=== PATIENT | female | born 1955 | race Caucasian/White ===

== ENCOUNTER → 2021-05-31 16:04 | Outpatient (BNVA) | payer MEDICARE, OTHER, SELFPAY | PROVIDERS: PCP Registered Nurse; Visit Provider Registered Nurse | DX: I10 Essential (primary) hypertension (principal); E11.9 Type 2 diabetes mellitus without complications; E03.9 Hypothyroidism, unspecified | CPT/HCPCS: 80053; 80061; 83036; 83721; 84443; 85025 ==

== ENCOUNTER → 2021-08-23 14:18 | Outpatient (BNVA) | payer MEDICARE, OTHER, SELFPAY | PROVIDERS: PCP Registered Nurse; Visit Provider Family Medicine | DX: E11.9 Type 2 diabetes mellitus without complications (principal); F51.01 Primary insomnia | CPT/HCPCS: 80048; 83036 ==

== ENCOUNTER → 2021-08-27 13:15 | Outpatient (BNVA) | payer MEDICARE, OTHER, SELFPAY | PROVIDERS: PCP Registered Nurse; Referring Provider Family Medicine; Visit Provider Internal Medicine | DX: E03.9 Hypothyroidism, unspecified (principal); E04.1 Nontoxic single thyroid nodule; E11.9 Type 2 diabetes mellitus without complications; I10 Essential (primary) hypertension; R00.0 Tachycardia, unspecified; I73.00 Raynaud's syndrome without gangrene; Z79.84 Long term (current) use of oral hypoglycemic drugs | CPT/HCPCS: 99204 ==

== ENCOUNTER → 2021-09-05 09:02 | Outpatient (BNVA) | payer MEDICARE, OTHER, SELFPAY | PROVIDERS: PCP Registered Nurse; Visit Provider Internal Medicine | DX: I10 Essential (primary) hypertension (principal); E11.9 Type 2 diabetes mellitus without complications; E03.9 Hypothyroidism, unspecified | CPT/HCPCS: 83036; 84439; 84443; 84480 ==

== ENCOUNTER → 2021-10-30 08:54 | Outpatient (BNVA) | payer MEDICARE, OTHER, SELFPAY | PROVIDERS: PCP Registered Nurse; Visit Provider Internal Medicine | DX: E03.9 Hypothyroidism, unspecified (principal); E04.1 Nontoxic single thyroid nodule; E04.2 Nontoxic multinodular goiter; I73.00 Raynaud's syndrome without gangrene; E11.9 Type 2 diabetes mellitus without complications | CPT/HCPCS: 80061; 83036; 84439; 84443 ==

== ENCOUNTER → 2021-10-31 12:36 | Outpatient (BNVA) | payer MEDICARE, OTHER, SELFPAY | PROVIDERS: PCP Registered Nurse; Visit Provider Internal Medicine | DX: E11.9 Type 2 diabetes mellitus without complications (principal); E04.2 Nontoxic multinodular goiter; E04.1 Nontoxic single thyroid nodule; I10 Essential (primary) hypertension; E03.9 Hypothyroidism, unspecified; I73.00 Raynaud's syndrome without gangrene; R00.0 Tachycardia, unspecified; Z79.84 Long term (current) use of oral hypoglycemic drugs; Z87.891 Personal history of nicotine dependence | CPT/HCPCS: 99214 ==

== ENCOUNTER → 2021-11-01 12:11 | Outpatient (BNVA) | payer MEDICARE, OTHER, SELFPAY | PROVIDERS: PCP Registered Nurse; Visit Provider Internal Medicine Cardiovascular Disease | DX: R00.0 Tachycardia, unspecified (principal); I10 Essential (primary) hypertension; E11.8 Type 2 diabetes mellitus with unspecified complications; Z79.84 Long term (current) use of oral hypoglycemic drugs; Z87.891 Personal history of nicotine dependence; F41.1 Generalized anxiety disorder; E03.9 Hypothyroidism, unspecified; R06.02 Shortness of breath | CPT/HCPCS: 99204 ==

== ENCOUNTER 2022-01-08 09:37 | Outpatient (CLI) | payer MEDICARE, OTHER, SELFPAY ==
--- NOTE | 2022-01-08 09:51 | MM_ITS ---
WS: [id number] SCREENING DIGITAL TOMOSYNTHESIS MAMMOGRAM WITH CAD HISTORY: Screening. History of prior benign RIGHT breast biopsy. COMPARISON: None available. Bilateral CC and MLO with tomosynthesis views submitted. Synthetic mammography reviewed. Computer aid ed detection analyzed. Breast composition: There are scattered areas of fibroglandular density. No suspicious masses, microc alcifications or architectural distortion. Mild architectural distortion posterior to the RIGHT nippl e corresponds to the surgical biopsy site. No suspicious masses. Benign calcifications within each br east. MM/[place] [id number] IMPRESSION: BI-RADS: 2-Benign FOLLOW UP: 1 Year Follow-up
== END 2022-01-08 09:38 | disposition home or self-care (01) ==
LOC: RAD 09:40
PROVIDERS: PCP Registered Nurse; Visit Provider Registered Nurse
DX: Z12.31 Encounter for screening mammogram for malignant neoplasm of breast (principal)
CPT/HCPCS: 77063; 77067

== ENCOUNTER 2022-01-09 09:33 | Outpatient (CLI) | payer MEDICARE, OTHER, SELFPAY ==
--- NOTE | 2022-01-09 11:00 | USCV_ITS ---
[facility] Luther Age: 66 Gender: F : 1955 Exam Date: 01/09/2022 09:54 Ordering Phys: Amanda Hughes MD ([email or web address]) Technologist: Bhanu Rollins Exam Location: [facility] [place] Indication: Shortness of breath BP: 132 / 85 HR: 98 Rhythm: Sinus Technical Quality: Adequate MEASUREMENTS (Male / Female) Normal Values 2D ECHO LV Diastolic Diameter PLAX 3.4 cm 4.2 - 5.9 / 3.9 - 5.3 cm LV Systolic Diameter PLAX 2.6 cm IVS Diastolic Thickness 1.0 cm 0.6 - 1.0 / 0.6 - 0.9 cm IVS Systolic Thickness 1.1 cm LVPW Diastolic Thickness 1.0 cm 0.6 - 1.0 / 0.6 - 0.9 cm LVPW Systolic Thickness 1.2 cm LVOT Diameter 2.0 cm LV Ejection Fraction 2D Teich 35.1 % LV Ejection Fraction MOD 2C 69.5 % LV Ejection Fraction 2C AL 70.4 % LA Diameter 3.5 cm IVC Diameter 0.9 cm M-MODE Aortic Annulus Diameter 3.4 cm LA Ao Ratio MM 1.0 MV E Point Septal Separation 1.1 cm DOPPLER AV Peak Velocity 137.0 cm/s LVOT Peak Velocity 102.0 cm/s AV Area Cont Eq vti 2.7 cm squared AV Area Cont Eq pk 2.3 cm squared MV Area PHT 5.0 cm squared Mitral E to A Ratio 0.8 MV E' Velocity 50.0 cm/s Mitral E to MV E' Ratio 7.9 Mitral E to LV E' Lateral Ratio 6.7 Mitral E to LV E' Septal Ratio 9.9 TR Peak Velocity 208.0 cm/s TR Peak Gradient 17.3 mmHg TV Peak E Velocity 109.0 cm/s Right Atrial Pressure 3.0 mmHg Pulmonary Artery Systolic Pressu 20.3 mmHg PV Peak Velocity 99.0 cm/s FINDINGS Left Ventricle Normal left ventricular size, systolic function and wall thickness, with no regional wall motion abnormalities. Left ventricular ejection fraction is estimated at 67 %. Normal diastolic function. Right Ventricle Normal right ventricular size and systolic function. RVSP could not be calculated due to incomplete tricuspid regurgitation velocity profile. Right Atrium Normal right atrial size. Left Atrium Normal left atrial size. Mitral Valve Structurally normal mitral valve. No mitral valve stenosis. Trace mitral valve regurgitation. Aortic Valve Aortic valve not well visualized. No aortic valve stenosis. No aortic valve regurgitation. Tricuspid Valve Structurally normal tricuspid valve. No tricuspid valve stenosis. Trace tricuspid valve regurgitation. Pulmonic Valve Pulmonic valve not well visualized. No pulmonary valve stenosis. Pericardium No pericardial effusion. Aorta Normal size aortic root and proximal ascending aorta. IVC Normal IVC dimension with >50% respiratory change of the inferior vena cava. CONCLUSIONS 1. Normal left ventricular size, systolic function and wall thickness, with no regional wall motion abnormalities. Left ventricular ejection fraction is estimated at 67 %. Normal diastolic function. 2. Normal right ventricular size and systolic function. 3. No significant valvular abnormality. 4. No prior similar studies to compare. Amanda Hughes MD (Electronically Signed) Final Date: 16 January 2022 17:21 S
== END 2022-01-09 09:34 | disposition home or self-care (01) ==
PROVIDERS: PCP Registered Nurse; Visit Provider Internal Medicine Cardiovascular Disease
DX: R06.02 Shortness of breath (principal)
CPT/HCPCS: 93306

== ENCOUNTER 2022-01-09 09:38 | Outpatient (CLI) | payer MEDICARE, OTHER, SELFPAY ==
--- NOTE | 2022-01-09 10:15 | US_ITS ---
WS: [email or web address] ULTRASOUND THYROID TECHNIQUE: Ultrasound of the thyroid. CLINICAL INFORMATION: Check for changes COMPARISON: No available comparisons. FINDINGS: Thyroid: Right and left thyroid lobes are normal in size and echotexture. Bilateral thyroid nodules. RIGHT superior thyroid nodule has a cystic and solid appearance measuring 1.3 x 1.0 x 0.9 cm. Additio nal inferior RIGHT thyroid nodule measuring 1.3 x 1.4 x 1.3 cm. Isoechoic solid nodule mid LEFT thyroid measuring 0.5 x 0.6 x 0.9 CM. Additional slightly echogenic i nferior LEFT thyroid nodule measuring 0.7 x 0.8 x 0.9 cm. Right thyroid lobe: 3.3 cm x 1.4 cm x 1.3 cm Left thyroid lobe: 3.3 cm x 1.2 cm x 1.3 cm. Isthmus: 0.4 mm. Cervical lymphadenopathy: None. US/US thyroid [id number] IMPRESSION: 1. Bilateral solid thyroid nodules described above. 2. Largest nodules on the RIGHT. One or both of the right-sided nodules could be further evaluated with FNA if not previously biopsied. 3. Subcentimeter LEFT thyroid nodules.
== END 2022-01-09 09:39 | disposition home or self-care (01) ==
PROVIDERS: PCP Registered Nurse; Visit Provider Internal Medicine
DX: E03.9 Hypothyroidism, unspecified (principal); E04.2 Nontoxic multinodular goiter
CPT/HCPCS: 76536

== ENCOUNTER → 2022-01-23 08:49 | Outpatient (BNVA) | payer MEDICARE, OTHER, SELFPAY | PROVIDERS: PCP Registered Nurse; Visit Provider Internal Medicine | DX: E04.1 Nontoxic single thyroid nodule (principal); E04.2 Nontoxic multinodular goiter; E11.9 Type 2 diabetes mellitus without complications; I10 Essential (primary) hypertension | CPT/HCPCS: 80053; 80061; 83036 ==

== ENCOUNTER → 2022-01-31 13:45 | Outpatient (BNVA) | payer MEDICARE, OTHER, SELFPAY | PROVIDERS: PCP Registered Nurse; Visit Provider Internal Medicine Cardiovascular Disease | DX: R00.0 Tachycardia, unspecified (principal); I10 Essential (primary) hypertension; E11.9 Type 2 diabetes mellitus without complications; Z79.4 Long term (current) use of insulin; Z79.84 Long term (current) use of oral hypoglycemic drugs; Z87.891 Personal history of nicotine dependence | CPT/HCPCS: 99213; 99214 ==

== ENCOUNTER → 2022-02-12 12:43 | Outpatient (BNVA) | payer MEDICARE, OTHER, SELFPAY | PROVIDERS: PCP Registered Nurse; Visit Provider Internal Medicine | DX: E03.9 Hypothyroidism, unspecified (principal); R00.0 Tachycardia, unspecified; I73.00 Raynaud's syndrome without gangrene; E04.1 Nontoxic single thyroid nodule; I10 Essential (primary) hypertension; E11.9 Type 2 diabetes mellitus without complications; Z79.84 Long term (current) use of oral hypoglycemic drugs | CPT/HCPCS: 99214 ==

== ENCOUNTER → 2022-02-27 14:34 | Outpatient (BNVA) | payer MEDICARE, OTHER, SELFPAY | PROVIDERS: PCP Registered Nurse; Visit Provider Internal Medicine | DX: E11.9 Type 2 diabetes mellitus without complications (principal); E03.9 Hypothyroidism, unspecified; I10 Essential (primary) hypertension; I73.00 Raynaud's syndrome without gangrene; R00.0 Tachycardia, unspecified; E04.1 Nontoxic single thyroid nodule; Z79.4 Long term (current) use of insulin; Z79.84 Long term (current) use of oral hypoglycemic drugs | CPT/HCPCS: 99214 ==

== ENCOUNTER → 2022-06-14 10:57 | Outpatient (BNVA) | payer MEDICARE, OTHER, SELFPAY | PROVIDERS: PCP Family Medicine; Visit Provider Podiatrist Foot & Ankle Surgery | DX: S82.851A Displaced trimalleolar fracture of right lower leg, initial encounter for closed fracture (principal); X58.XXXA Exposure to other specified factors, initial encounter; E11.69 Type 2 diabetes mellitus with other specified complication; Z79.84 Long term (current) use of oral hypoglycemic drugs; Z79.4 Long term (current) use of insulin | CPT/HCPCS: 99204 ==

== ENCOUNTER → 2022-06-21 10:42 | Outpatient (BNVA) | payer MEDICARE, OTHER, SELFPAY | PROVIDERS: PCP Family Medicine; Visit Provider Podiatrist Foot & Ankle Surgery | DX: X58.XXXA Exposure to other specified factors, initial encounter (principal); S82.851A Displaced trimalleolar fracture of right lower leg, initial encounter for closed fracture | CPT/HCPCS: 99214 ==

== ENCOUNTER 2022-06-27 06:47 | Day surgery (SDC) | payer MEDICARE, OTHER, SELFPAY ==
[2022-06-26 12:37] VITALS: BMI 31.2
[2022-06-27] VITALS (12 sets, daily range): BP systolic 133–167; BP diastolic 79–106; PULSE 87–106; RESP 13–20; TEMP 36.1–36.6; O2SAT 93–100
--- NOTE | 2022-06-27 07:14 | ECG_ITS ---
[facility] Test Date: 2022-06-27 Pat Name: Mercy Luther Department: Room: Gender: Female Electric Meter Technician: : 1955 Requested By: Pérez Fregoso Order Number: [id number] Mary MD: Nathalie Cyr M.D. Measurements Intervals Jennings Rate: 90 P: 55 NM: 172 QRS: 3 QRSD: 75 T: 30 QT: 358 QTc: 438 Interpretive Statements SINUS RHYTHM LOW QRS VOLTAGE IN PRECORDIAL LEADS [QRS DEFLECTION < 1.0 mV IN CHEST LEADS] No previous ECG available for comparison Electronically Signed On 06-27-2022 20:09:32 NURSING ASSISTANTS TEACHER by Nathalie Cyr M.D. [id number]
[2022-06-27] MEDS: sodium chloride 0.9% 1,000 ML 30 ML IV (07:23)
[2022-06-27] MEDS: CELEcoxib 200 mg Capsule 400 MG PO (07:24)
[2022-06-27] MEDS: acetaminophen 1,000 MG/100 ML PIGGYBACK 400 MG IV (07:24)
[2022-06-27 07:25] LABS: Glucose Point of Care 101 mg/dL (70-110)
[2022-06-27 07:44] LABS: Anion Gap 17.7 (5-19); Blood Urea Nitrogen 18 mg/dL (8-23); Calcium 9.6 mg/dL (8.5-10.5); Carbon Dioxide 23 mmol/L (22-29); Chloride 102 mmol/L (98-107); Glomerular Filtration Rate 123.4 mL/min (90-130); Glucose 101 mg/dL (65-115); Osmolality Calculated 290 mOsm/kg (285-295); Potassium 3.7 mmol/L (3.5-5.1); Sodium 139 mmol/L (136-145)
--- NOTE | 2022-06-27 08:28 | P.ANESASSM_ITS ---
Pre-Anesthetic Assessment Height/Weight: Height 1.52 m Weight 72.575 kg Temp Pulse Resp BP Pulse Ox O2 Del Method 97.3 F L 97 18 164/93 96 06/27/22 07:10 06/27/22 07:10 06/27/22 07:10 06/27/22 07:10 06/27/22 07:10 06/27/22 07:12 Preop Diagnosis: Right bimalleolar ankle fracture Operation Date: 06/27/22 08:30 Proposed Procedures p Right bimalleolar ankle fracture ORIF CPT 38575, S82.841A(Right) - Pérez Fregoso DPM Familial anesthetic complications: Difficult intubation Was Beta Francisco taken within 24 hours: N/A Was Clonidine taken within 24 hours: N/A Last intake: Intake Last Liquid Date 06/26/22 Last Liquid Time 16:00 Last Solid Date 06/26/22 Last Solid Time 16:00 Social No alcohol and No tobacco Exam alert, oriented x 3, clear to auscultation bilaterally and regular rate & rhythm Airway Submandibular: within normal limits Cervical ROM: within normal limits Mallampati: Class III Dentition: full CV/HEM Arrythmia and Hypertension Metabolic Diabetes Mellitus and Thyroid Disease Neuropsych Anxiety and Depression Anesthetic Plan ASA status: 3 Anesthesia: General and Regional (specify below) (Popliteal blk) Medications/Allergies Home Medications Medication Instructions Recorded Confirmed Last Taken Type levothyroxine 50 mcg tablet 50 mcg PO DAILY #90 tabs 09/12/21 06/26/22 06/26/22 Rx (Synthroid) pen needle, diabetic 32 gauge x #100 ea 11/28/21 06/21/22 Unknown Rx (1st Tier Unifine Pentips) diltiazem HCl 120 mg 120 mg PO BID #60 caps 03/08/22 06/26/22 06/27/22 04:00 Rx capsule,extended release 12 hr diltiazem HCl 60 mg 60 mg PO DIRECTED #30 caps 03/08/22 06/26/22 06/27/22 04: 00 Rx capsule,extended release 12 hr insulin degludec 100 unit/mL (3 30 unit SUBCUT DAILY 05/30/22 06/26/22 06/27/22 05:30 History mL) subcutaneous pen (Tresiba FlexTouch U-100 insulin) blood sugar diagnostic (Accu-Chek #100 ea 05/31/22 06/21/22 Unknown Rx Guide test strips) hydroxyzine HCl 25 mg tablet See Rx Instructions PO DAILY PRN 05/31/22 06/26/22 06/26/22 Rx sleep 90 days #90 tabs lancets 30 gauge (1st Tier Unilet #100 ea 05/31/22 06/21/22 Unknown Rx ComforTouch Lancet) topiramate 25 mg tablet 25 mg PO BID #60 tabs 06/04/22 06/26/22 06/26/22 Rx blood glucose monitor #1 ea 06/06/22 06/21/22 Unknown Rx blood sugar diagnostic (Accu-Chek #100 ea 06/07/22 06/21/22 Unknown Rx Guide test strips) blood-glucose meter (Accu-Chek #1 ea 06/07/22 06/21/22 Unknown Rx Guide Glucose Meter) lancets (Accu-Chek Softclix #100 ea 06/07/22 06/21/22 Unknown Rx Lancets) [facility] #1 ea 06/14/22 06/21/22 Unknown Rx cyclobenzaprine 10 mg tablet 10 mg PO BID #20 tabs 06/14/22 06/26/22 06/25/22 Rx Walker #1 ea 06/19/22 06/21/22 Unknown Rx hydrocodone 5 mg-acetaminophen 325 1 tab PO TID PRN pain 1 week #20 06/19/22 0 06/26/22 06/26/22 Rx mg tablet tabs shower chair #1 ea 06/21/22 06/21/22 Unknown Rx metformin 500 mg tablet,extended 1,000 mg PO DAILY 90 days #180 tabs 06/25/22 06/26/22 06/26/22 Rx release 24 hr ibuprofen 800 mg tablet 800 mg PO Q8H PRN pain 7 days #21 06/26/22 06/27/22 06/26/22 Rx tabs Allergies Allergy/AdvReac Type Severity Reaction Status Date / Time doxepin Allergy Intermediate ADR-Cramping Verified 06/27/22 07:04 of the Muscles trazodone Allergy Mild NASAL Verified 06/27/22 07:04 PROBLEMS Beta-Blockers Allergy Unknown unknown Verified 06/27/22 07:04 (Beta-Adrenergic Bloc sitagliptin [From Januvia] AdvReac Mild other Verified 06/27/22 07:04 ssri Allergy hypomania Uncoded 06/27/22 07:04 Current Medications Generic Name Dose Route Start Last Admin Trade Name Laura PRN Reason Stop Dose Admin Sodium Chloride 1,000 mls @ 30 mls/hr 06/27/22 07:00 06/27/22 07:23 Sodium Chloride 0.9% IV 06/28/22 06:59 30 mls/hr .Q24H CURTIS Administration PFSH Anesthesia Medical History Essential hypertension History of hepatitis C History of pulmonary embolism provoked by surgery Hypothyroid Inappropriate sinus tachycardia Insomnia Migraine Multiple thyroid nodules Raynauds syndrome Surgical History History of hysterectomy with oophorectomy Family History Grandfather Myocardial infarction Family/Other Stroke Cancer Father Hypertension Diabetes CAD (coronary artery disease) Chronic kidney disease (CKD) Grandmother Cancer colon, ovarian Social History Smoking and tobacco status: never smoked Alcohol intake: never Household members: spouse and family Marital status: Number of children: 2 Number of grandchildren: 2 Current occupational status: retired Current occupation: stay at home mom [employer] Agree to transfusion: No Data Anesthesia 06/27/22 07:18 BMP 06/27/22 07:18 Sodium 139 Potassium 3.7 Chloride 102 Carbon Dioxide 23 BUN 18 Creatinine 0.5 Glucose 101 Calcium 9.6 Cardiac Studies: Echocardiogram 01/09/22
--- NOTE | 2022-06-27 08:45 | W.PM.OPSUD ---
Surgery/Procedure H&P Update DATE OF PROCEDURE: June 27, 2022 DATE H&P PERFORMED: 06/21/22 CHANGES TO PREVIOUS DOCUMENTATION: No changes PREOP DIAGNOSIS: Right bimalleolar ankle fracture PRIMARY INDICATION FOR PROCEDURE: Right bimalleolar ankle fracture PLANNED PROCEDURE: Operation Date: 06/27/22 08:30 Proposed Procedures p Right bimalleolar ankle fracture ORIF CPT 48983, S82.841A(Right) - Pérez Fregoso DPM
[2022-06-27] MEDS: ceFAZolin 2,000 MG in sodium chloride 0.9% (plus) 50 ML 100 MG IV (09:04)
--- NOTE | 2022-06-27 09:38 | ANES.PROC ---
Anesthesia Procedures Procedure/Date: 06/27/22 Nerve Block ^: Nerve Block 1: Main Anesthesia: general anesthesia Time Out Performed: Yes Consent: requested by attending/covering physician, from patient, risks and benefits reviewed and patient agrees to proceed Nerve block location: popliteal (right) Anesthesia monitors applied: pulse oximetry, EKG, BP cuff and oxygen Nerve block position: supine Anesthetic Used: ropivicaine 0.5% Amount of anesthesia used (mL): 30 Ultrasound used to: recognize landmarks Nerve Stimulator Used?: No Interscalene/Femoral BLK: 4 stimuplex 21 g needle used for position and inplane approach Injection: neg aspiration of heme Patient Tolerated Procedure: well Complications: none
--- NOTE | 2022-06-27 11:18 | XR_ITS ---
WS: [id number] Right ankle, 3 views, 06/27/2022 Clinical Data: Post op right ankle ORIF Comparison: Right ankle, 06/12/2022. Findings: The bimalleolar fracture has been repaired with a lateral distal fibular plate. There is a long screw crossing the fibula and the entire tibia to aid in the reduction. There are oblique pins reducing a medial malleolar fracture. There are faith at the subcutaneous tissue overlying the surgical sites. There is a plaster posterior splint. XR/XR ankle RT min 3V* [id number] Impression: Internal fixation of bimalleolar fracture of the right ankle.
[2022-06-27] MEDS: fentaNYL 50 mcg/mL INJ 2mL 100 MCG IVP (11:48)
--- NOTE | 2022-06-27 12:32 | P.OP_ITS ---
Operative Report Date of procedure: June 27, 2022 Pre-op diagnosis: Preop Diagnosis Right bimalleolar ankle fracture Post-op diagnosis: Same Post-op findings: Right ankle bimalleolar fracture. Poor bone quality of fibula and especially medial malleolus. Medial malleolus bone density was inadequate for screw fixation. Medial malleolus had to be temporarily fixated with percutaneous K wires Procedure done: 1. Open reduction internal fixation right bimalleolar ankle fracture CPT 16648 Implants: Anatomical fibular plate, react syndesmotic screw [place] [employer] and two 0.045 K wires Surgeon: Dr. Pérez Fregoso, D.P.M. Estimated blood loss: Less than 20 cc Complications: None Findings: See above Procedure: Patient is a 67-year-old female that has a history of right bimalleolar ankle fracture. The inherent instability of the fracture pattern necessitates open reduction internal fixation. A lengthy discussion regarding the procedure, including risks and complications has been had with the patient and is noted in the recent clinic note. Written and verbal consent have been obtained. All patient questions have been answered to the patient?s satisfaction. No written or verbal guarantees have been given or implied. The patient has been NPO since midnight. The history has been reviewed and the history and physical is current. The signed consent was confirmed and placed in the patient chart. Patient imaging has been reviewed and is consistent with the diagnosis. Under mild sedation, the patient was brought into the operating room and placed on the table in the supine position. IV antibiotics were given by the anesthesia team as preoperative surgical prophylaxis. General sedation was then performed by the anesthesiateam. A regional popliteal block was performed by the anesthesia department A pneumatic tourniquet was then placed about the right thigh. The operative extremity was then prepped and draped in the usual fashion. The extremity was then elevated and exsanguinated before the tourniquet was inflated to 325 mmHg. After inflation, the following procedure was then performed. Attention was directed to the lateral aspect of the right ankle where a 10 cm incision was made using a #15 blade. Dissection was carried down through subcutaneous and superficial fascia. All bleeders were cauterized as necessary during dissection. Dissection was carried down to the level of the fibula. Periosteum was reflected to expose the fibular fracture. The fracture was noted to be oblique in nature with posterior spike at the level of the mortise. The posterior spike was noted to be fragmented and slightly comminuted. The quality of bone was noted to be extremely soft. Using a combination of dental pick and curette the hematoma was cleared from the fracture site. A lobster claw reduction clamp was used to reduce the fracture. The fracture was temporally fixated with a 0.045 K wire. Due to the comminution and poor bone quality it was decided not to use an interfrag screw. With the fibula out to length and maintained using a reduction clamp a fibular anatomic plate from [place] [employer] was placed on the lateral aspect of the fibula. Position of the plate was confirmed on C-arm imaging as well as clinically. The distal holes of the plate were then drilled and filled using 2.7 locking screws. The proximal holes of the plate were then drilled and filled using a combination of 3.5 nonlocking and locking screws. Good position of the plate and screws was noted. Attention was then directed to the medial malleolus. A 5 cm incision was made over the medial malleolus. Dissection was carried down through subcutaneous and superficial fascia to the level of the periosteum. This was incised and reflected to expose the underlying medial malleolus fracture. The hematoma was cleared from the fracture site using curette, rongeur and dental pick. Attempts were made to reduce the medial malleolus using a [id number] reduction clamp but again, the bone quality was inadequate for this reduction method. A dental pick was used to reduce the fracture and it was temporarily fixated with a guidewire. Next, a drill for the 4.0 mm cannulated screw from [place] [employer] was used to overdrilled the wire. Next,, the screw was inserted over the wire and as it was being inserted across the medial malleolus fracture the bone quality was noted to be soft and fragmenting and unable to accept the screw. The screw was backed out at this point. It was then determined to reduce strain of the deltoid on the medial malleolus that the syndesmotic fixation was warranted to stabilize the mortise. A react screw from [place] [employer] was inserted into the lateral plate in standard fashion. Good positioning of the screw was noted. The medial malleolus was then noted to be positioned in an appropriate position. 2 crossing K wires were then inserted across the medial malleolus fracture. Good positioning of the orthopedic hardware was confirmed on C-arm imaging. Incision sites were irrigated with copious months sterile saline before attention was directed to closure. Deep tissue was closed with 2-0 Vicryl followed by subcuticular closure with 3-0 Vicryl and skin closure with skin faith. The tourniquet was let down and good hyperemic response was noted to all digits of the right foot. The incision sites were dressed with Xeroform, 4 x 4 gauze, Kerlix before being placed in a well-padded below the knee posterior splint. The patient tolerated the procedure and anesthesia well and without complication. The patient was transported from the operating room to the recovery room with vital signs stable and vascular status intact to all digits of the right foot. The patient was given both written and verbal instructions to remain nonweightbearing to the operative extremity, to keep dressings/splint clean, dry and intact and to take pain medication as directed. The patient will follow-up in the outpatient setting at their scheduled appointment. The patient was discharged with my personal number and was instructed to call if any questions or issues should arise. They were discharged home once anesthesia criteria was met.
--- NOTE | 2022-06-27 18:11 | ANE.PACU2 ---
Inpatient post-anesthesia follow up: Airway intact: Yes Vital signs: Temperature 97.8 F Pulse Rate 106 Respiratory Rate 18 Blood Pressure 154/94 Pulse Oximetry 95 Oxygen Delivery Me thod Room Air Oxygen Flow Rate 4 Fraction of Inspir ed Oxygen Hydration adequate: Yes Nausea and vomiting: No Pain level: 3 Mental status: Baseline
== END 2022-06-27 13:17 | disposition home or self-care (01) ==
PROVIDERS: PCP Family Medicine; Visit Provider Podiatrist Foot & Ankle Surgery
PROC: (CPT 27814; principal; 2022-06-27 08:10)
DX: S82.841A Displaced bimalleolar fracture of right lower leg, initial encounter for closed fracture (principal); W00.0XXA Fall on same level due to ice and snow, initial encounter; I10 Essential (primary) hypertension; E11.9 Type 2 diabetes mellitus without complications; Z79.4 Long term (current) use of insulin; Z86.19 Personal history of other infectious and parasitic diseases
CPT/HCPCS: 27814; 36415; 36416; 73610; 76000; 80048; 82962; 93005; C1713; J0131; J0690; J1100; J1170; J2250; J2405; J2704; J2795; J3010; J7030

== ENCOUNTER → 2022-07-09 14:27 | Outpatient (BNVA) | payer MEDICARE, OTHER, SELFPAY | PROVIDERS: PCP Family Medicine; Visit Provider Podiatrist Foot & Ankle Surgery | DX: S82.851A Displaced trimalleolar fracture of right lower leg, initial encounter for closed fracture (principal); X58.XXXA Exposure to other specified factors, initial encounter | CPT/HCPCS: 73610; 99024 ==

== ENCOUNTER → 2022-07-19 13:45 | Outpatient (BNVA) | payer MEDICARE, OTHER, SELFPAY | PROVIDERS: PCP Family Medicine; Visit Provider Podiatrist Foot & Ankle Surgery | DX: Z98.890 Other specified postprocedural states (principal); S82.851A Displaced trimalleolar fracture of right lower leg, initial encounter for closed fracture; X58.XXXA Exposure to other specified factors, initial encounter; E11.69 Type 2 diabetes mellitus with other specified complication; Z79.4 Long term (current) use of insulin; Z79.84 Long term (current) use of oral hypoglycemic drugs | CPT/HCPCS: 29405; 99024 ==

== ENCOUNTER → 2022-08-07 13:02 | Outpatient (BNVA) | payer MEDICARE, OTHER, SELFPAY | PROVIDERS: PCP Family Medicine; Visit Provider Podiatrist Foot & Ankle Surgery | DX: S82.851D Displaced trimalleolar fracture of right lower leg, subsequent encounter for closed fracture with routine healing (principal); X58.XXXD Exposure to other specified factors, subsequent encounter; Z98.890 Other specified postprocedural states; Z87.81 Personal history of (healed) traumatic fracture; E11.8 Type 2 diabetes mellitus with unspecified complications; Z79.4 Long term (current) use of insulin; Z79.84 Long term (current) use of oral hypoglycemic drugs | CPT/HCPCS: 73610 ==

== ENCOUNTER 2022-08-07 14:28 | Outpatient (CLI) | payer MEDICARE, OTHER, SELFPAY | END 2022-08-07 14:29 | disposition home or self-care (01) | LOC: SPT 14:30 | PROVIDERS: PCP Family Medicine; Visit Provider Podiatrist Foot & Ankle Surgery | DX: Z47.89 Encounter for other orthopedic aftercare (principal); S82.851D Displaced trimalleolar fracture of right lower leg, subsequent encounter for closed fracture with routine healing; X58.XXXD Exposure to other specified factors, subsequent encounter | CPT/HCPCS: 97760; 99024; L4361 ==

== ENCOUNTER → 2022-08-16 10:42 | Outpatient (BNVA) | payer MEDICARE, OTHER, SELFPAY | PROVIDERS: PCP Family Medicine; Visit Provider Internal Medicine | DX: E03.9 Hypothyroidism, unspecified (principal); I73.00 Raynaud's syndrome without gangrene; I10 Essential (primary) hypertension; M81.0 Age-related osteoporosis without current pathological fracture; E04.1 Nontoxic single thyroid nodule; R00.0 Tachycardia, unspecified; E11.9 Type 2 diabetes mellitus without complications; Z79.84 Long term (current) use of oral hypoglycemic drugs; Z79.890 Hormone replacement therapy | CPT/HCPCS: 99214 ==

== ENCOUNTER → 2022-08-19 13:31 | Outpatient (BNVA) | payer MEDICARE, OTHER, SELFPAY | PROVIDERS: PCP Family Medicine; Visit Provider Family Medicine | DX: E03.9 Hypothyroidism, unspecified (principal); I10 Essential (primary) hypertension; E11.9 Type 2 diabetes mellitus without complications | CPT/HCPCS: 80053; 80061; 83036; 84439; 84443 ==

== ENCOUNTER → 2022-08-21 13:01 | Outpatient (BNVA) | payer MEDICARE, OTHER, SELFPAY | PROVIDERS: PCP Family Medicine; Visit Provider Podiatrist Foot & Ankle Surgery | DX: Z98.890 Other specified postprocedural states (principal); Z87.81 Personal history of (healed) traumatic fracture; S82.851A Displaced trimalleolar fracture of right lower leg, initial encounter for closed fracture; X58.XXXA Exposure to other specified factors, initial encounter; Z79.4 Long term (current) use of insulin; Z79.84 Long term (current) use of oral hypoglycemic drugs | CPT/HCPCS: 73610 ==

== ENCOUNTER 2022-08-21 15:31 | Outpatient (CLI) | payer MEDICARE, OTHER, SELFPAY | END 2022-08-21 15:32 | disposition home or self-care (01) | LOC: SPT 15:39 | PROVIDERS: PCP Family Medicine; Visit Provider Podiatrist Foot & Ankle Surgery | DX: Z46.89 Encounter for fitting and adjustment of other specified devices (principal); M25.571 Pain in right ankle and joints of right foot | CPT/HCPCS: 97760; 99024; L1902 ==

== ENCOUNTER → 2022-09-25 14:03 | Outpatient (BNVA) | payer MEDICARE, OTHER, SELFPAY | PROVIDERS: PCP Family Medicine; Visit Provider Podiatrist Foot & Ankle Surgery | DX: S82.851A Displaced trimalleolar fracture of right lower leg, initial encounter for closed fracture (principal); X58.XXXA Exposure to other specified factors, initial encounter; E11.8 Type 2 diabetes mellitus with unspecified complications; Z79.4 Long term (current) use of insulin; Z79.84 Long term (current) use of oral hypoglycemic drugs | CPT/HCPCS: 73610; 99213 ==

== ENCOUNTER 2022-10-15 13:00 | Outpatient (CLI) | payer MEDICARE, OTHER, SELFPAY ==
--- NOTE | 2022-10-15 13:08 | XR_ITS ---
WS: [id number] DEXA (DUAL ENERGY X-RAY ABSORPTIOMETRY) Bone mineral density was performed using a [employer] machine. HISTORY: osteoporosis COMPARISON: None available. Lumbar spine BMD (L1-L4): 0.854 g/cm2 T score: -2.7 Z score: -1.2 Total hip BMD: Left: 0.773 g/cm2. T score: -1.9 Z score: -0.7 Right: 0.781 g/cm2. T score: -1.8 Z score: -0.6 10 year probability of a major osteoporotic fracture is 19.8%. XR/XR DEXA axial skeleton* [id number] IMPRESSION: OSTEOPOROSIS based upon the WHO classification for females.
== END 2022-10-15 13:01 | disposition home or self-care (01) ==
LOC: RAD 13:03
PROVIDERS: PCP Family Medicine; Visit Provider Internal Medicine
DX: M81.0 Age-related osteoporosis without current pathological fracture (principal)
CPT/HCPCS: 77080

== ENCOUNTER → 2022-10-31 13:58 | Outpatient (BNVA) | payer MEDICARE, OTHER, SELFPAY | PROVIDERS: PCP Family Medicine; Visit Provider Internal Medicine Cardiovascular Disease | DX: R00.0 Tachycardia, unspecified (principal); I10 Essential (primary) hypertension | CPT/HCPCS: 99214 ==

== ENCOUNTER → 2022-11-06 14:16 | Outpatient (BNVA) | payer MEDICARE, OTHER, SELFPAY | PROVIDERS: PCP Family Medicine; Visit Provider Family Medicine | DX: R16.1 Splenomegaly, not elsewhere classified (principal); M81.0 Age-related osteoporosis without current pathological fracture; D64.9 Anemia, unspecified; Z86.19 Personal history of other infectious and parasitic diseases | CPT/HCPCS: 80053; 82306; 82728; 83540; 85025 ==

== ENCOUNTER → 2022-12-23 13:01 | Outpatient (BNVA) | payer MEDICARE, OTHER, SELFPAY | PROVIDERS: PCP Family Medicine; Visit Provider Podiatrist Foot & Ankle Surgery | DX: S82.851A Displaced trimalleolar fracture of right lower leg, initial encounter for closed fracture; B07.0 Plantar wart; X58.XXXA Exposure to other specified factors, initial encounter; E11.8 Type 2 diabetes mellitus with unspecified complications; Z79.4 Long term (current) use of insulin | CPT/HCPCS: 99213 ==

== ENCOUNTER → 2023-01-09 11:01 | Outpatient (BNVA) | payer MEDICARE, OTHER, SELFPAY | PROVIDERS: PCP Family Medicine; Visit Provider Internal Medicine | DX: E11.9 Type 2 diabetes mellitus without complications (principal); E03.9 Hypothyroidism, unspecified; I73.00 Raynaud's syndrome without gangrene; R00.0 Tachycardia, unspecified; E04.1 Nontoxic single thyroid nodule; I10 Essential (primary) hypertension; M81.0 Age-related osteoporosis without current pathological fracture; Z79.84 Long term (current) use of oral hypoglycemic drugs; Z79.4 Long term (current) use of insulin; Z79.890 Hormone replacement therapy | CPT/HCPCS: 99214 ==

== ENCOUNTER → 2023-02-13 09:54 | Outpatient (BNVA) | payer MEDICARE, OTHER, SELFPAY | PROVIDERS: PCP Family Medicine; Visit Provider Internal Medicine | DX: E03.9 Hypothyroidism, unspecified (principal); E11.9 Type 2 diabetes mellitus without complications; I10 Essential (primary) hypertension | CPT/HCPCS: 80053; 80061; 82043; 83036; 84439; 84443 ==

== ENCOUNTER → 2023-11-10 09:43 | Outpatient (BNVA) | payer MEDICARE, OTHER, SELFPAY | PROVIDERS: PCP Family Medicine; Visit Provider Family Medicine | DX: E11.9 Type 2 diabetes mellitus without complications (principal); E03.9 Hypothyroidism, unspecified; M81.0 Age-related osteoporosis without current pathological fracture | CPT/HCPCS: 80053; 80061; 82306; 82607; 83036; 84443 ==

== ENCOUNTER → 2023-12-12 08:39 | Outpatient (BNVA) | payer MEDICARE, OTHER, SELFPAY | PROVIDERS: PCP Family Medicine; Visit Provider Podiatrist Foot & Ankle Surgery | DX: M25.571 Pain in right ankle and joints of right foot (principal) | CPT/HCPCS: 73610; 99213 ==

== ENCOUNTER → 2023-12-16 14:14 | Outpatient (BNVA) | payer MEDICARE, OTHER, SELFPAY | PROVIDERS: PCP Family Medicine; Visit Provider Family Medicine | DX: R94.4 Abnormal results of kidney function studies (principal); E11.9 Type 2 diabetes mellitus without complications | CPT/HCPCS: 80048 ==

== ENCOUNTER 2024-01-02 08:04 | Outpatient (CLI) | payer MEDICARE, OTHER, SELFPAY ==
--- NOTE | 2024-01-02 08:00 | US_ITS ---
WS: [email or web address] RIGHT UPPER QUADRANT ULTRASOUND HISTORY: f/u hep c COMPARISON: None available. Liver: 13.3 cm in length. Normal size liver. Surface of the liver is slightly nodular which can be se en with cirrhosis. No intrahepatic mass. No bile duct dilatation. Portal Vein: Normal hepatopetal flow with monophasic waveform. Gallbladder: Slightly over distended gallbladder. Moderate amount of sludge and low-level echoes with in the gallbladder. There may be tiny gallstones also present. There is no wall thickening or Horne' s sign. CBD: 0.4 cm Pancreas: Normal size and echogenicity. Right kidney: 10.6 cm in length. Normal size and echogenicity. No hydronephrosis or mass. Aorta and IVC: Unremarkable abdominal aorta and IVC. No ascites. US/US liver [id number] IMPRESSION: 1. Mildly cirrhotic appearance of the liver with no mass. 2. Normal hepatopetal flow in the portal vein. 3. Mildly distended gallbladder with tiny stones and sludge. No Horne sign or wall thickening. Consider surgical evaluation.
--- NOTE | 2024-01-02 08:14 | US_ITS ---
WS: [email or web address] THYROID ULTRASOUND HISTORY: F/U NODULES COMPARISON: Thyroid ultrasound 01/09/2022 Right lobe: 2.0 cm x 1.3 cm x 3.2 cm (w x ap x l). Volume: 3.9 cm3. Well-circumscribed hypoechoic nodule mid gland with a lucent center and mild peripheral vascularity m easures 1.1 x 1.0 x 1.3 cm. No interval increase in size. There is an additional hypoechoic nodule mo re inferiorly measuring 1.4 x 1.2 x 1.3 cm. This nodule is slightly more hypoechoic. Neither of these nodules has increased in size. Left lobe: 1.5 cm x 1.4 cm x 3.4 cm (w x ap x l). Volume: 3.4 cm3. Normal sized gland. Slightly hypoechoic nodule with cystic component inferior gland measures 0.9 x 0. 9 x 1.2 cm. Additional nodule in the mid gland measures 0.7 x 0.6 x 0.8 cm. Isthmus: 0.4 cm. US/US thyroid [id number] IMPRESSION: 1. Bilateral thyroid nodules. 2. TI-RADS 4: The most concerning nodule is a hypoechoic nodule in the lower p ole of the RIGHT thyroid measuring 1.4 x 1.2 x 1.3 cm. TI-RADS criteria recomme nds ultrasound-guided FNA when this nodule is greater than 1.5 cm. Recommend co ntinued yearly follow-up. Nodule stable since 01/09/2022.
== END 2024-01-02 08:05 | disposition home or self-care (01) ==
LOC: RAD 08:04
PROVIDERS: PCP Family Medicine; Visit Provider Family Medicine
DX: Z86.19 Personal history of other infectious and parasitic diseases (principal); E04.1 Nontoxic single thyroid nodule; K74.60 Unspecified cirrhosis of liver; K82.8 Other specified diseases of gallbladder
CPT/HCPCS: 76536; 76705

== ENCOUNTER → 2024-01-05 09:20 | Outpatient (BNVA) | payer MEDICARE, OTHER, SELFPAY | PROVIDERS: PCP Family Medicine; Visit Provider Family Medicine | DX: K74.60 Unspecified cirrhosis of liver (principal) | CPT/HCPCS: 80053; 85025; 85610 ==

== ENCOUNTER 2024-01-21 08:59 | Outpatient (CLI) | payer MEDICARE, OTHER, SELFPAY ==
--- NOTE | 2024-01-21 09:00 | MM_ITS ---
WS: [email or web address] SCREENING DIGITAL BREAST TOMOSYNTHESIS MAMMOGRAM WITH CAD HISTORY: breast cancer screening COMPARISON: 01/08/2022 Bilateral CC and MLO with tomosynthesis and synthetic mammography submitted. Computer aided detection analyzed. Breast composition: There are scattered areas of fibroglandular density. Postsurgical changes in the anterior RIGHT breast are stable. There is a new asymmetry measuring 5.7 mm in the anterior LEFT lisa st seen only on the CC projection. Benign calcifications in each breast. MM/[place] [id number] IMPRESSION: BI-RADS: 0 - Incomplete: Need additional imaging evaluation. FOLLOW UP: Need Additional Imaging LEFT breast: Spot compression views (CC and MLO). True ML. Ultrasound to follow if abnormality persists.
== END 2024-01-21 09:00 | disposition home or self-care (01) ==
LOC: MOBLMAM 09:03
PROVIDERS: PCP Family Medicine; Visit Provider Family Medicine
DX: Z12.31 Encounter for screening mammogram for malignant neoplasm of breast (principal); M81.0 Age-related osteoporosis without current pathological fracture
CPT/HCPCS: 77063; 77067

== ENCOUNTER → 2024-01-27 13:36 | Outpatient (BNVA) | payer MEDICARE, OTHER, SELFPAY | PROVIDERS: PCP Family Medicine; Visit Provider Internal Medicine Cardiovascular Disease | DX: R00.0 Tachycardia, unspecified (principal); R09.89 Other specified symptoms and signs involving the circulatory and respiratory systems | CPT/HCPCS: 99213 ==

== ENCOUNTER 2024-03-09 11:06 | Outpatient (CLI) | payer MEDICARE, OTHER, SELFPAY ==
--- NOTE | 2024-03-09 11:30 | MM_ITS ---
WS: [email or web address] ADDITIONAL VIEWS LEFT MAMMOGRAM WITH DIGITAL BREAST TOMOSYNTHESIS. HISTORY: birad 0 screening mammo COMPARISON: 01/08/2022, 01/21/2024 Spot compression views LEFT breast in CC, MLO projections and true ML submitted with digital breast t omosynthesis and SM. The asymmetry noted in the lateral breast on the screening mammogram is no longer present with additi onal views. There are no areas of distortion or mass or mass effect. No grouping of calcifications. MM/MM diag LT tomosynthesis [id number] IMPRESSION: BI-RADS: 2- Benign FOLLOW UP: 1 Year Follow-up Return to annual screening mammography. The asymmetry noted on screening mammog benny resolves with additional imaging.
== END 2024-03-09 11:07 | disposition home or self-care (01) ==
LOC: RAD 11:07
PROVIDERS: PCP Family Medicine; Visit Provider Family Medicine
DX: R92.8 Other abnormal and inconclusive findings on diagnostic imaging of breast (principal)
CPT/HCPCS: 77061; G0279

== ENCOUNTER → 2024-04-20 13:55 | Outpatient (BNVA) | payer MEDICARE, OTHER, SELFPAY | PROVIDERS: PCP Family Medicine; Visit Provider Family Medicine | DX: E11.9 Type 2 diabetes mellitus without complications (principal); E03.9 Hypothyroidism, unspecified | CPT/HCPCS: 80053; 80061; 82607; 83036; 84443 ==

== ENCOUNTER → 2024-07-26 15:29 | Outpatient (BNVA) | payer MEDICARE, SELFPAY | PROVIDERS: PCP Family Medicine; Visit Provider Internal Medicine Cardiovascular Disease | DX: I47.11 Inappropriate sinus tachycardia, so stated (principal); R09.89 Other specified symptoms and signs involving the circulatory and respiratory systems; I73.00 Raynaud's syndrome without gangrene | CPT/HCPCS: 99214 ==

== ENCOUNTER → 2024-08-16 10:03 | Outpatient (BNVA) | payer MEDICARE, SELFPAY | PROVIDERS: PCP Family Medicine; Visit Provider Family Medicine | DX: E11.9 Type 2 diabetes mellitus without complications (principal) | CPT/HCPCS: 80048; 83036 ==

== ENCOUNTER → 2024-08-30 09:19 | Outpatient (BNVA) | payer MEDICARE, SELFPAY | PROVIDERS: PCP Family Medicine; Visit Provider Family Medicine | DX: R04.0 Epistaxis (principal); R19.7 Diarrhea, unspecified | CPT/HCPCS: 85025 ==

== ENCOUNTER → 2024-11-15 11:27 | Outpatient (BNVA) | payer MEDICARE, SELFPAY | PROVIDERS: PCP Family Medicine; Visit Provider Family Medicine | DX: I10 Essential (primary) hypertension (principal); E11.9 Type 2 diabetes mellitus without complications | CPT/HCPCS: 80053; 80061; 83036 ==

== ENCOUNTER → 2025-04-13 08:42 | Outpatient (BNVA) | payer MEDICARE, SELFPAY | PROVIDERS: PCP Family Medicine; Visit Provider Family Medicine | DX: I10 Essential (primary) hypertension (principal); E11.9 Type 2 diabetes mellitus without complications; E03.9 Hypothyroidism, unspecified | CPT/HCPCS: 80053; 80061; 82607; 83036; 84443; 85025 ==

== ENCOUNTER 2025-04-27 10:24 | Outpatient (CLI) | payer MEDICARE, SELFPAY ==
--- NOTE | 2025-04-27 12:15 | US_ITS ---
WS: [id number] THYROID ULTRASOUND HISTORY: thyroid nodule followup - annual COMPARISON: 01/02/2024, 01/09/2022 Right lobe: 1.5 cm x 2.0 cm x 3.9 cm (w x ap x l). Volume: 5.9 cm3. There are 2 nodules in the RIGHT thyroid. Nodule in the lower pole is very hypoechoic with a peripheral rim of increased vascularity. Well-circumscribed nodule. No echogenic foci. Nodule in the lower pole measures 1.2 x 1.3 x 1.4 cm. There is a hyperechoic nodule in the more mid gland measuring 1.5 x 2.0 x 3.9 cm. This nodule is nearly isoechoic to the gland with a central cystic area. This is a well-circumscribed nodule with increased vascularity. Left lobe: 1.5 cm x 1.5 cm x 3.5 cm (w x ap x l). Volume: 3.6 cm3. Heterogeneous thyroid. Isodense nodule in the mid lateral thyroid measures 0.6 x 0.7 x 0.8 cm. There is a hyperechoic nodule with a few punctate foci within the inferior pole extending slightly exophytic from the thyroid. This nodule measures 0.8 x 0.7 x 1.3 cm. Isthmus: 0.4 cm. US/US thyroid [id number] IMPRESSION: 1. TI-RADS 4; TI-RADS 4 nodule in the lower pole RIGHT thyroid is very hypoech oic. Recommend ultrasound-guided fine-needle aspiration at this time. 2. TI-RADS 4; echogenic nodule with punctate calcifications in the lower pole LEFT thyroid. Due to concerning ultrasound features recommend fine-needle aspir ation at this time. 3. TI-RADS 4; nodule in the mid RIGHT thyroid is more echogenic and not quite as suspicious. Consider fine-needle aspiration of this nodule also at this time .
--- NOTE | 2025-04-27 13:00 | MM_ITS ---
WS: [id number] Bilateral screening 3D tomosynthesis digital mammogram, 04/27/2025 10:36 AM Clinical Data: breast cancer screening Comparison: 03/09/2024, 01/21/2024, 01/08/2022. Findings: No spiculated masses or clustered calcifications are seen. There are no secondary signs of carcinoma. MM/MM scr BI tomosynthesis [id number] Impression: Negative bilateral mammogram unchanged. Recommend annual screening mammograms. BIRADS: 1 - Negative. FOLLOW UP: 1 Year Follow-up DENSITY: There are scattered areas of fibroglandular density. The CAD content checker was used
--- NOTE | 2025-04-27 13:30 | XR_ITS ---
WS: [id number] SCREENING DEXA SCAN [employer] CLINICAL INFORMATION: osteoporosis follow-up COMPARISON: 2022 FINDINGS: The L1-L4 bone mineral density measures 0.802 g/cm2. This corresponds to a T score score of -3.1 and Z score of -1.8. Left femoral neck bone mineral density measures 0.753 g/cm2. This corresponds to a T score of -2.0 and Z score of -0.9. Right femoral neck bone mineral density measures 0.762 g/cm2. This corresponds to a T score -2.0of and Z score of -0.8. Mean femoral neck bone mineral density measures 0.757 g/cm2. This corresponds to a T score of -2.0 and Z score of -0.8. XR/XR DEXA axial skeleton* [id number] IMPRESSION: Osteoporosis lumbar spine. Osteopenia femoral necks. Patient's FRAX calculated 10 year probability for major osteoporotic fracture i s 22.9% and osteoporotic hip fracture is 5.8%. Bone mineral density lumbar spine decreased -6.1% Bone mineral density femoral necks decreased -2.6%
== END 2025-04-27 10:25 | disposition home or self-care (01) ==
LOC: RAD 10:28
PROVIDERS: PCP Family Medicine; Visit Provider Family Medicine
DX: Z12.31 Encounter for screening mammogram for malignant neoplasm of breast (principal); Z13.820 Encounter for screening for osteoporosis; Z78.0 Asymptomatic menopausal state; M81.0 Age-related osteoporosis without current pathological fracture; E04.2 Nontoxic multinodular goiter; R92.323 Mammographic fibroglandular density, bilateral breasts; M85.89 Other specified disorders of bone density and structure, multiple sites
CPT/HCPCS: 76536; 77063; 77067; 77080